=== PATIENT | male | born 1955 | race Caucasian/White ===

== ENCOUNTER → 2017-03-01 | Outpatient (CLI) | payer BC ==
[2017-03-01 11:15] LABS: BLOOD UREA NITROGEN 19 mg/dl (7-18); CREATININE 0.84 mg/dl (0.60-1.40)
== END | disposition home or self-care (01) ==
LOC: C.LABBC 08:44
PROVIDERS: ATTEND Physician Assistant
DX: R42 Dizziness and giddiness (principal); H90.5 Unspecified sensorineural hearing loss

== ENCOUNTER → 2017-03-04 | Outpatient (CLI) | payer BC ==
[~2017-03-04] MED LIST: GADAVIST IV PRN
--- NOTE | 2017-03-04 10:29 | DIAGNOSTIC IMAGING REPORT ---
MRI OF THE BRAIN AND IACS WITHOUT AND WITH IV CONTRAST CLINICAL HISTORY: H90.5 DIZZINESS. COMPARISON STUDY: No previous studies for comparison. TECHNIQUE: MRI of the brain was performed from the vertex to the skull base utilizing various T1 and T2 weighted sequences. Following the IV administration of 8.5 mL of Gadavist contrast, additional enhanced images were obtained. FINDINGS: Sagittal T1, axial diffusion, proton density and T2 weighted axial, coronal FLAIR, and pre and post axial T1-weighted images were acquired. These were supplemented with post gadolinium coronal T1 weighted images. No intra or extra-axial mass lesions are visualized. Axial diffusion-weighted images reveal no evidence of acute or subacute infarction. There is no evidence of ventricular dilatation. Proton density T2-weighted and FLAIR images reveal an old right basal ganglia infarct. Tiny scattered foci of increased T2 signal are likely on a small vessel basis. There are no abnormal flow voids. No cerebellopontine angle masses are visualized. There is no pathologic intracanalicular enhancement. No pathologically enhancing masses are identified. IMPRESSION: 1. No acute intracranial findings 2. No evidence of intracranial mass. 3. No evidence of acute or subacute infarction 4. Old right basal ganglia infarct. Electronically signed by: George Joel M.D. 03/04/2017 10:28 AM Dictated Date/Time: 03/04/2017 10:24 AM
== END | disposition home or self-care (01) ==
LOC: C.MRI 09:19
PROVIDERS: ATTEND Physician Assistant
DX: H90.5 Unspecified sensorineural hearing loss (principal); Z86.73 Personal history of transient ischemic attack (TIA), and cerebral infarction without residual deficits

== ENCOUNTER → 2017-03-29 | Outpatient (CLI) | payer BC ==
[2017-03-29 11:38] LABS: LYME DISEASE AB IGG NEG (NEG)
[2017-03-29 11:43] LABS: LYME DISEASE AB IGM NEG (NEG)
== END | disposition home or self-care (01) ==
LOC: C.LAB1850 08:44
PROVIDERS: ATTEND Family Medicine
DX: R42 Dizziness and giddiness (principal); R45.1 Restlessness and agitation; G47.9 Sleep disorder, unspecified; Z91.89 Other specified personal risk factors, not elsewhere classified

== ENCOUNTER 2020-10-19 19:38 | Observation (INO) ==
[2020-10-19] MEDS ORDERED: SODIUM CHLORIDE 0.9% 1000ML 1,000 ML IV ONE (20:11)
[2020-10-19] MEDS ORDERED: ACETAMINOPHEN 500 MG TAB PO STA (20:12)
--- NOTE | 2020-10-19 20:26 | Emergency Department Note ---
Impression & Plan COVID-19, Fever, Acute alteration in mental status ED Provider Note NAME: PRESTON WYNNE AGE: 65 SEX: M : 1955 ARRIVES VIA: Walk-In INFORMANT: Patient, the patient's significant other via telephone ED PROVIDER(S): Marco Schmitt DO CHIEF COMPLAINT: Fever HPI: The patient is a 65-year-old male who presented to the emergency department for an evaluation of fever. The patient was recently diagnosed with COVID-19 infection. The patient was seen in our facility 3 days ago for similar complaints. At that time he was tested with multiple laboratory as well as radiographic studies. He was found to have signs of respiratory illness as well as a positive COVID-19 swab. The patient was started on Tessalon Perles. He was also started on albuterol inhaler. The patient presents today with fever and worsening symptoms. He does complain of dyspnea on exertion. He does complain of a dry cough which is nonproductive. He noticed that he was having low-grade fever and was concerned that his condition was worsening so he presented to the emergency department. The patient was noted to have some degree of confusion by his significant other. I did call her on the telephone to get further history and review of systems. The patient has had no chest pain. He denies having any nausea or vomiting. He said no dysuria or frequency. The patient did not have [id number] medication for fever today. ROS: See above HPI for pertinent positives & negatives. A total of 10 systems reviewed and were otherwise negative. PAST MEDICAL HISTORY: See Below PAST SURGICAL HISTORY: See Below FAMILY HISTORY: See Below SOCIAL HISTORY: See Below HOME MEDICATIONS: See Below ALLERGIES: See Below VITALS: See Below PHYSICAL EXAMINATION: GENERAL: The patient is awake and alert. He is somewhat anxious appearing but overall comfortable. EYES: The conjunctivae are clear. The pupils are round and reactive. EARS, NOSE, MOUTH AND THROAT: The nose is without any evidence of any deformity. Mucous membranes are dry. NECK: The neck is nontender and supple. RESPIRATORY: Normal respiratory effort is noted there is no evidence of wheezing rhonchi or rales CARDIOVASCULAR: Regular rate and rhythm noted there no murmurs rubs or gallops normal S1 normal S2. GASTROINTESTINAL: The abdomen is soft. Abdomen is nontender. MUSCULOSKELETAL/EXTREMITIES: There is no evidence of gross deformity full range of motion is noted in the hips and shoulders. SKIN: There is no obvious evidence of any rash. There are no petechiae, pallor or cyanosis noted. NEUROLOGIC: Patient is awake alert and oriented to person place and situation. Patellar tendon reflexes were 2+ bilaterally. MEDICAL DECISION MAKING: The patient is a 65-year-old male who presented to the emergency department for an evaluation of confusion and fever. The patient was seen in our facility 3 days ago for similar complaints. At that time he was diagnosed with COVID-19. He was started on Tessalon Perles as well as albuterol. The patient presents back to the emergency department this evening with fever. I made multiple phone calls to the patient's significant other and apparently his alteration in mental status is new compared to previous. He does have some degree of confusion at baseline but his mental status has been off baseline over the last 48 hours. The patient was treated with IV fluids. He was given Tylenol in the emergency department. He was reevaluated multiple times. On subsequent reevaluation his condition did not significantly improve. CT the head showed no acute structural disease. Lumbar puncture was obtained and does not appear to be consistent with meningitis or subarachnoid hemorrhage. Given the patient's condition I will discuss his case with the on-call [facility] hospitalist. Triage Nursing notes reviewed. Prior medical records reviewed Vital Signs: reviewed and remarkable for fever Differential diagnosis: Viral syndrome, otitis, pharyngitis, pneumonia, influenza, meningitis, urinary tract infection, sepsis, bacteremia, as well as other pathologies. ER treatment provided: See below Diagnostics interpreted by me: ECG: EKG was obtained in the emergency department. My interpretation is normal sinus rhythm at 69 bpm. There was no ectopy. There is no acute ST segment abnormalities. This was compared to a tracing from October 162020. No significant changes were noted. Cardiac Monitoring: An order was placed for continuous cardiac monitoring. The monitor shows a rate of 75 bpm with sinus rhythm. Laboratory studies: As stated above and show below. Imaging studies: See below Consultation(s): [id number]: Dr. Rose was consulted and will evaluate the patient in the emergency department. ED COURSE: Procedures: Lumbar Puncture Indication: Altered mental status and fever. Verbal consent was obtained after the risks and benefits were explained, inc luding but not limited to headache, bleeding/clotting, scarring, infection, pain, and bone/joint/nerve damage. At this time, the risks of the procedure are less than the risks of NOT performing the procedure. A time out was taken and the correct patient and site identified. The patient was placed in the seated position and the back was prepped with betadine and draped in the standard fashion. The L3 intervertebral space was identified, anesthetized locally with 1% lidocaine without epinephrine, and the spinal needle was inserted through the skin with the bevel parallel to the dural fibers. The needle was carefully advanced into the lumbar cistern and 4 tubes of clear CSF was obtained. The st ylet was replaced and the needle was removed. A bandaid was placed and the patient was placed in the supine position. The patient tolerated the procedure well and there were no complications. PDMP:reviewed and no issues Past Med/Surg History Medical History Ischemic stroke Urinary symptom or sign Surgical History No pertinent past surgical history Family History Father Allergies Mother Allergies Other Family history non-contributory Social History Smoking Status: Never smoker Preferred Language: Tajik Feels Safe at Home: Yes Allergies Allergies Allergy/AdvReac Type Severity Reaction Status Date / Time No Known Allergies Allergy Unverified 10/16/20 14:31 Home Meds Home Medications Medication Instructions Recorded Confirmed aspirin 81 mg PO QAM 12/01/19 10/19/20 multivitamin 1 tab PO QAM 12/01/19 10/19/20 Previous Rx's Medication Instructions Recorded albuterol sulfate 2 puffs INH 6XD PRN #6.7 gm 10/16/20 benzonatate [Tessalon Perles] 100 mg PO TID PRN 5 Days #15 cap 10/16/20 Results & Data (ED) Vital Signs Vital Signs - 24 hr 10/19/20 19:44 10/19/20 20:11 10/19/20 20:29 Temperature 38.2 C H Temperature Source Temporal Artery Scan Pulse Rate 78 Pulse Rate [Apical] 67 Respiratory Rate 20 18 Respiratory Depth Normal Blood Pressure 110/73 Blood Pressure [Right Arm] 129/73 Blood Pressure Mean 85 Blood Pressure Mean [Right Arm] 91 Pulse Oximetry 97 98 98 Oxygen Delivery Method Room Air Room Air Room Air Sepsis Recent Fever Within 48 Hours Yes Sepsis New/Unexplained Change in Mental Status N/A Sepsis Action Taken by Nursing No Action Required 10/19/20 21:38 10/19/20 23:00 Temperature 37.6 C H Temperature Source Oral Oral Pulse Rate Pulse Rate [Apical] 67 70 Respiratory Rate 18 18 Respiratory Depth Normal Normal Blood Pressure Blood Pressure [Right Arm] 111/71 121/74 Blood Pressure Mean Blood Pressure Mean [Right Arm] 84 89 Pulse Oximetry 95 95 Oxygen Delivery Method Room Air Room Air Sepsis Recent Fever Within 48 Hours Sepsis New/Unexplained Change in Mental Status Sepsis Action Taken by [facility] Medications Current Medication List: was personally reviewed by me Laboratory Data Attestation: I reviewed the patient's lab results. Result diagrams: 10/19/20 20:31 10/19/20 20:31 Lab Results 10/19/20 10/19/20 10/19/20 Range/Units 20:31 20:31 20:31 WBC 3.51 L (4.8-10.8) K/uL RBC 4.58 L (4.7-6.1) M/uL Hgb 15.6 (14.0-18.0) g/dL Hct 46.4 (42-52) % MCV 101.3 H (80-100) fL MCH 34.1 H (25-34) pg MCHC 33.6 (32-36) g/dL RDW Std Deviation 46.1 (36.4-46.3) fL RDW Coeff of Jessica 12.4 (11.5-14.5) % Plt Count 178 (130-400) K/uL MPV 10.4 (7.4-10.4) fL Immature Gran % (Auto) 0.3 % Neut % (Auto) 78.0 % Lymph % (Auto) 14.0 % [place] % (Auto) 7.4 % Eos % (Auto) 0.0 % Baso % (Auto) 0.3 % Neut # (Auto) 2.74 (1.4-6.5) K/uL Lymph # (Auto) 0.49 L (1.2-3.4) K/uL [place] # (Auto) 0.26 (0.11-0.59) K/uL Eos # (Auto) 0.00 (0-0.5) K/uL Baso # (Auto) 0.01 (0-0.2) K/uL Immature Gran # (Auto) 0.01 (0.00-0.02) K/uL ESR (0-14) mm/hr PT 11.7 (9.0-12.0) Seconds INR 1.1 (0.9-1.1) APTT 28.8 (21.0-31.0) Seconds PTT Ratio 1.0 VBG pH (7.36-7.41) VBG pCO2 (38-50) mmHg VBG pO2 mmHg VBG HCO3 mmol/L VBG O2 Saturation % VBG Base Excess mEq/L Barometric Pressure mm/Hg Sodium 134 L (136-145) mmol/L Potassium 4.3 (3.5-5.1) mmol/L Chloride 101 (98-107) mmol/L Carbon Dioxide 29 (21-32) mmol/L Anion Gap 4.0 (3-11) BUN 15 (7-18) mg/dl Creatinine 1.09 (0.6-1.4) mg/dl Est Cr Clr Drug Dosing 77.5 ml/min Est GFR ( Amer) 81.5 Est GFR (Non-Af Amer) 70.4 BUN/Creatinine Ratio 14.1 (10-20) Glucose 97 (70-99) mg/dl Lactate (0.4-2.0) mmol/L Calcium 8.1 L (8.5-10.1) mg/dl Magnesium 2.0 (1.8-2.4) mg/dl Total Bilirubin 0.5 (0.2-1) mg/dl AST 11 L (15-37) U/L ALT 25 (12-78) U/L Alkaline Phosphatase 110 (45-117) U/L Ammonia (11-32) umol/L Troponin I < 0.015 (0-0.045) ng/ml C-Reactive Protein 1.79 H (0-0.29) mg/dl Total Protein 8.3 H (6.4-8.2) gm/dl Albumin 3.9 (3.4-5.0) gm/dl Globulin 4.4 H (2.5-4.0) gm/dl Albumin/Globulin Ratio 0.9 (0.9-2) Procalcitonin (0-0.5) ng/ml Urine Color Urine Appearance (Clear) Urine pH (4.5-7.5) Ur Specific Mcrae (1.000-1.030) Urine Protein (Negative) Urine Glucose (UA) (Negative) Urine Ketones (Negative) Urine Blood (Negative) Urine Nitrite (Negative) Urine Bilirubin (Negative) Urine Urobilinogen (Negative) Ur Leukocyte Esterase (Negative) CSF Appearance CSF Color Xanthrochromic CSF WBC (0-5) /uL CSF RBC (0-) /uL CSF Cell Count Tube # CSF Chemistry Tube # CSF Glucose (40-70) mg/dl CSF Total Protein (15-45) mg/dl Ethyl Alcohol mg/dL (0-3) mg/dl 10/19/20 10/19/20 10/19/20 Range/Units 20:31 20:31 20:31 WBC (4.8-10.8) K/uL RBC (4.7-6.1) M/uL Hgb (14.0-18.0) g/dL Hct (42-52) % MCV (80-100) fL MCH (25-34) pg MCHC (32-36) g/dL RDW Std Deviation (36.4-46.3) fL RDW Coeff of Jessica (11.5-14.5) % Plt Count (130-400) K/uL MPV (7.4-10.4) fL Immature Gran % (Auto) % Neut % (Auto) % Lymph % (Auto) % [place] % (Auto) % Eos % (Auto) % Baso % (Auto) % Neut # (Auto) (1.4-6.5) K/uL Lymph # (Auto) (1.2-3.4) K/uL [place] # (Auto) (0.11-0.59) K/uL Eos # (Auto) (0-0.5) K/uL Baso # (Auto) (0-0.2) K/uL Immature Gran # (Auto) (0.00-0.02) K/uL ESR 28 H (0-14) mm/hr PT (9.0-12.0) Seconds INR (0.9-1.1) APTT (21.0-31.0) Seconds PTT Ratio VBG pH (7.36-7.41) VBG pCO2 (38-50) mmHg VBG pO2 mmHg VBG HCO3 mmol/L VBG O2 Saturation % VBG Base Excess mEq/L Barometric Pressure mm/Hg Sodium (136-145) mmol/L Potassium (3.5-5.1) mmol/L Chloride (98-107) mmol/L Carbon Dioxide (21-32) mmol/L Anion Gap (3-11) BUN (7-18) mg/dl Creatinine (0.6-1.4) mg/dl Est Cr Clr Drug Dosing ml/min Est GFR ( Amer) Est GFR (Non-Af Amer) BUN/Creatinine Ratio (10-20) Glucose (70-99) mg/dl Lactate 0.8 (0.4-2.0) mmol/L Calcium (8.5-10.1) mg/dl Magnesium (1.8-2.4) mg/dl Total Bilirubin (0.2-1) mg/dl AST (15-37) U/L ALT (12-78) U/L Alkaline Phosphatase (45-117) U/L Ammonia (11-32) umol/L Troponin I (0-0.045) ng/ml C-Reactive Protein (0-0.29) mg/dl Total Protein (6.4-8.2) gm/dl Albumin (3.4-5.0) gm/dl Globulin (2.5-4.0) gm/dl Albumin/Globulin Ratio (0.9-2) Procalcitonin 0.05 (0-0.5) ng/ml Urine Color Urine Appearance (Clear) Urine pH (4.5-7.5) Ur Specific Mcrae (1.000-1.030) Urine Protein (Negative) Urine Glucose (UA) (Negative) Urine Ketones (Negative) Urine Blood (Negative) Urine Nitrite (Negative) Urine Bilirubin (Negative) Urine Urobilinogen (Negative) Ur Leukocyte Esterase (Negative) CSF Appearance CSF Color Xanthrochromic CSF WBC (0-5) /uL CSF RBC (0-) /uL CSF Cell Count Tube # CSF Chemistry Tube # CSF Glucose (40-70) mg/dl CSF Total Protein (15-45) mg/dl Ethyl Alcohol mg/dL (0-3) mg/dl 10/19/20 10/19/20 10/19/20 Range/Units 21:05 22:10 22:32 WBC (4.8-10.8) K/uL RBC (4.7-6.1) M/uL Hgb (14.0-18.0) g/dL Hct (42-52) % MCV (80-100) fL MCH (25-34) pg MCHC (32-36) g/dL RDW Std Deviation (36.4-46.3) fL RDW Coeff of Jessica (11.5-14.5) % Plt Count (130-400) K/uL MPV (7.4-10.4) fL Immature Gran % (Auto) % Neut % (Auto) % Lymph % (Auto) % [place] % (Auto) % Eos % (Auto) % Baso % (Auto) % Neut # (Auto) (1.4-6.5) K/uL Lymph # (Auto) (1.2-3.4) K/uL [place] # (Auto) (0.11-0.59) K/uL Eos # (Auto) (0-0.5) K/uL Baso # (Auto) (0-0.2) K/uL Immature Gran # (Auto) (0.00-0.02) K/uL ESR (0-14) mm/hr PT (9.0-12.0) Seconds INR (0.9-1.1) APTT (21.0-31.0) Seconds PTT Ratio VBG pH (7.36-7.41) VBG pCO2 (38-50) mmHg VBG pO2 mmHg VBG HCO3 mmol/L VBG O2 Saturation % VBG Base Excess mEq/L Barometric Pressure mm/Hg Sodium (136-145) mmol/L Potassium (3.5-5.1) mmol/L Chloride (98-107) mmol/L Carbon Dioxide (21-32) mmol/L Anion Gap (3-11) BUN (7-18) mg/dl Creatinine (0.6-1.4) mg/dl Est Cr Clr Drug Dosing ml/min Est GFR ( Amer) Est GFR (Non-Af Amer) BUN/Creatinine Ratio (10-20) Glucose (70-99) mg/dl Lactate (0.4-2.0) mmol/L Calcium (8.5-10.1) mg/dl Magnesium (1.8-2.4) mg/dl Total Bilirubin (0.2-1) mg/dl AST (15-37) U/L ALT (12-78) U/L Alkaline Phosphatase (45-117) U/L Ammonia 42.6 H (11-32) umol/L Troponin I (0-0.045) ng/ml C-Reactive Protein (0-0.29) mg/dl Total Protein (6.4-8.2) gm/dl Albumin (3.4-5.0) gm/dl Globulin (2.5-4.0) gm/dl Albumin/Globulin Ratio (0.9-2) Procalcitonin (0-0.5) ng/ml Urine Color Yellow Urine Appearance Clear (Clear) Urine pH 8.0 H (4.5-7.5) Ur Specific Mcrae 1.020 (1.000-1.030) Urine Protein Negative (Negative) Urine Glucose (UA) Negative (Negative) Urine Ketones Negative (Negative) Urine Blood Negative (Negative) Urine Nitrite Negative (Negative) Urine Bilirubin Negative (Negative) Urine Urobilinogen Negative (Negative) Ur Leukocyte Esterase Negative (Negative) CSF Appearance Clear CSF Color Colorless Xanthrochromic No xanthochromia CSF WBC 1 (0-5) /uL CSF RBC 0 (0-) /uL CSF Cell Count Tube # 3 CSF Chemistry Tube # 1 CSF Glucose 59 (40-70) mg/dl CSF Total Protein 42.7 (15-45) mg/dl Ethyl Alcohol mg/dL (0-3) mg/dl 10/19/20 10/19/20 Range/Units 22:32 22:32 WBC (4.8-10.8) K/uL RBC (4.7-6.1) M/uL Hgb (14.0-18.0) g/dL Hct (42-52) % MCV (80-100) fL MCH (25-34) pg MCHC (32-36) g/dL RDW Std Deviation (36.4-46.3) fL RDW Coeff of Jessica (11.5-14.5) % Plt Count (130-400) K/uL MPV (7.4-10.4) fL Immature Gran % (Auto) % Neut % (Auto) % Lymph % (Auto) % [place] % (Auto) % Eos % (Auto) % Baso % (Auto) % Neut # (Auto) (1.4-6.5) K/uL Lymph # (Auto) (1.2-3.4) K/uL [place] # (Auto) (0.11-0.59) K/uL Eos # (Auto) (0-0.5) K/uL Baso # (Auto) (0-0.2) K/uL Immature Gran # (Auto) (0.00-0.02) K/uL ESR (0-14) mm/hr PT (9.0-12.0) Seconds INR (0.9-1.1) APTT (21.0-31.0) Seconds PTT Ratio VBG pH 7.44 H (7.36-7.41) VBG pCO2 37 L (38-50) mmHg VBG pO2 51 mmHg VBG HCO3 24 mmol/L VBG O2 Saturation 86.6 % VBG Base Excess 0.5 mEq/L Barometric Pressure 738.6 mm/Hg Sodium (136-145) mmol/L Potassium (3.5-5.1) mmol/L Chloride (98-107) mmol/L Carbon Dioxide (21-32) mmol/L Anion Gap (3-11) BUN (7-18) mg/dl Creatinine (0.6-1.4) mg/dl Est Cr Clr Drug Dosing ml/min Est GFR ( Amer) Est GFR (Non-Af Amer) BUN/Creatinine Ratio (10-20) Glucose (70-99) mg/dl Lactate (0.4-2.0) mmol/L Calcium (8.5-10.1) mg/dl Magnesium (1.8-2.4) mg/dl Total Bilirubin (0.2-1) mg/dl AST (15-37) U/L ALT (12-78) U/L Alkaline Phosphatase (45-117) U/L Ammonia (11-32) umol/L Troponin I (0-0.045) ng/ml C-Reactive Protein (0-0.29) mg/dl Total Protein (6.4-8.2) gm/dl Albumin (3.4-5.0) gm/dl Globulin (2.5-4.0) gm/dl Albumin/Globulin Ratio (0.9-2) Procalcitonin (0-0.5) ng/ml Urine Color Urine Appearance (Clear) Urine pH (4.5-7.5) Ur Specific Mcrae (1.000-1.030) Urine Protein (Negative) Urine Glucose (UA) (Negative) Urine Ketones (Negative) Urine Blood (Negative) Urine Nitrite (Negative) Urine Bilirubin (Negative) Urine Urobilinogen (Negative) Ur Leukocyte Esterase (Negative) CSF Appearance CSF Color Xanthrochromic CSF WBC (0-5) /uL CSF RBC (0-) /uL CSF Cell Count Tube # CSF Chemistry Tube # CSF Glucose (40-70) mg/dl CSF Total Protein (15-45) mg/dl Ethyl Alcohol mg/dL < 3.0 (0-3) mg/dl Administered Medications Discontinued Medications Acetaminophen (Acetaminophen 500 Mg Tab) 1,000 mg PO NOW STA Stop: 10/19/20 20:13 Last Admin: 10/19/20 20:26 Dose: 1,000 mg Documented by: [id number] Sodium Chloride (Nss 1000ml) 1,000 mls @ 999 mls/hr IV .Q1H1M ONE Stop: 10/19/20 21:11 Last Infusion: 10/19/20 21:34 Dose: 0 mls/hr Documented by: [id number] Admin: 10/19/20 20:25 Dose: 999 mls/hr Documented by: [id number] Imaging Data Radiologist's Impression: Patient: PRESTON WYNNE Admit Date: 10/19/20 MR#: [id number] Address1: [address] [place] [address] Acct ID:[id number] Address2: Date: 1955 [facility] Zip: [place] [address] Age: 65 Location: ED Sex: M Room/Bed: Att Phy: Diagnosis: FEVER, +COVID Valentina Phy: Marco Abraham MD Service Date: 10/19/20 [facility] Phy: Interpreting Phy: Marcos Porras Admit Phy: Ordering Phy: Marco Schmitt DO cc: ~ CT head/brain wo con CLINICAL HISTORY: 65 years-old Male with altered. Acutely altered mental status. COVID Positive. TECHNIQUE: Multiple axial CT images of the head were obtained without contrast. A dose lowering technique was utilized adhering to the principles of ALARA. CT DOSE: 614.27 mGy.cm COMPARISON: Head CT 10/16/2020. FINDINGS: No acute intracranial hemorrhage, midline shift, intracranial mass, hydrocephalus, territorial ischemia or abnormal extra-axial collection. Mild age-related involutional changes with suggestion of mild chronic microvascular ischemic disease. Chronic infarct of the periventricular right frontal lobe with ex vacuo ventriculomegaly of the frontal horn. Senescent calcifications of the right lentiform nucleus redemonstrated. Cerebral vascular calcifications. The calvarium is intact. The paranasal sinuses, mastoid air cells, and middle ear cavities are clear. IMPRESSION: Chronic findings as above without acute process. ACT 112: Negative or not required by law. The above report was generated using voice recognition software. It may contain grammatical, syntax or spelling errors. Electronically signed by: William Porras M.D. 10/19/2020 9:11 PM Dictated: 10/19/202108 Transcribed: 10/19/202108 Patient: PRESTON WYNNE Admit Date: 10/19/20 MR#: [id number] Address1: [address] [place] [address] Acct ID:[id number] Address2: Date: 1955 [facility] Zip: [place] [address] Age: 65 Location: ED Sex: M Room/Bed: Att Phy: Diagnosis: FEVER, +COVID Valentina Phy: Marco Abraham MD Service Date: 10/19/20 Fam Phy: Interpreting Phy: Marcos Porras Admit Phy: Ordering Phy: Marco Schmitt DO cc: ~ XR chest 1V portable HISTORY: 65 years-old Male SEPSIS acute sepsis COMPARISON: Chest radiograph 10/16/2020 TECHNIQUE: Portable AP view of the chest FINDINGS: Cardiac silhouette is mildly enlarged. No thoracic aortic tortuosity with calcified plaque. Mild interstitial coarsening without pneumothorax, pleural effusion, airspace consolidation or overt pulmonary edema. Degenerative changes of the shoulders and spine. IMPRESSION: No acute process. ACT 112: Negative or not required by law. The above report was generated using voice recognition software. It may contain grammatical, syntax or spelling errors. Electronically signed by: William Porras M.D. 10/19/2020 8:42 PM Dictated: 10/19/202040 Transcribed: 10/19/202040 Blood Pressure Blood Pressure Findings: Normal blood pressure Discharge Plan Visit Data Chief Complaint: Fever Stated Complaint: FEVER, +COVID ED Provider: Marco Schmitt Discharge Problem: COVID-19, Fever, Acute alteration in mental status Patient Disposition: Being Evaluated by Hospitalist Condition: Good Forms Stand Alone Forms: [facility] Pres[facility] Prescriptions: No Action multivitamin Tablet 1 tab PO QAM RF: 0 aspirin 81 mg tablet,delayed release (DR/EC) 81 mg PO QAM RF: 0 benzonatate [Tessalon Perles] 100 mg capsule 100 mg PO TID PRN (Reason: cough) 5 Days Qty: 15 RF: 0 albuterol sulfate 90 mcg/actuation HFA aerosol inhaler 2 puffs INH 6XD PRN (Reason: shortness of breath or wheezing) Qty: 6.7 RF: 0 Referrals Referrals: Marco Abraham MD [Primary Care Provider] - Discharge Problem: Fever Qualifiers: Fever type: unspecified Qualified Code(s): R50.9 - Fever, unspecified
[2020-10-19 20:41] LABS: Basophils # (auto) 0.01 K/uL (0-0.2); Basophils % (auto) 0.3 %; Hematocrit (blood only) 46.4 % (42-52); Hemoglobin 15.6 g/dL (14.0-18.0); Immature Granulocytes # (auto) 0.01 K/uL (0.00-0.02); Immature Granulocytes % (auto) 0.3 %; Lymphocytes # (auto) 0.49 K/uL (1.2-3.4); Mean Corpuscular Hemoglobin 34.1 pg (25-34); Mean Corpuscular Hgb Conc 33.6 g/dL (32-36); Mean Corpuscular Volume 101.3 fL (80-100); Mean Platelet Volume 10.4 fL (7.4-10.4); Monocytes # (auto) 0.26 K/uL (0.11-0.59); Monocytes % (auto) 7.4 %; Neutrophils # (auto) 2.74 K/uL (1.4-6.5); Platelet Count 178 K/uL (130-400); RDW Coefficient of Variation 12.4 % (11.5-14.5); RDW Standard Deviation 46.1 fL (36.4-46.3); Red Blood Count 4.58 M/uL (4.7-6.1); White Blood Count 3.51 K/uL (4.8-10.8)
--- NOTE | 2020-10-19 20:43 | XRay Report ---
XR chest 1V portable HISTORY: 65 years-old Male SEPSIS acute sepsis COMPARISON: Chest radiograph 10/16/2020 TECHNIQUE: Portable AP view of the chest FINDINGS: Cardiac silhouette is mildly enlarged. No thoracic aortic tortuosity with calcified plaque. Mild inte rstitial coarsening without pneumothorax, pleural effusion, airspace consolidation or overt pulmonary edema. Degenerative changes of the shoulders and spine. IMPRESSION: No acute process. ACT 112: Negative or not required by law. The above report was generated using voice recognition software. It may contain grammatical, syntax o r spelling errors. Electronically signed by: William Porras M.D. 10/19/2020 8:42 PM
[2020-10-19 20:58] LABS: Alanine Aminotransferase 25 U/L (12-78); Albumin Level 3.9 gm/dl (3.4-5.0); Aspartate Aminotransferase 11 U/L (15-37); BUN Creatinine Ratio 14.1 (10-20); Blood Urea Nitrogen 15 mg/dl (7-18); C Reactive Protein 1.79 mg/dl (0-0.29); Calcium 8.1 mg/dl (8.5-10.1); Carbon Dioxide 29 mmol/L (21-32); Chloride 101 mmol/L (98-107); Creatinine Clr Calc Pharmacy 77.5 ml/min; Est GFR (African American) 81.5; Est GFR (Non-African American) 70.4; Glucose 97 mg/dl (70-99); Potassium 4.3 mmol/L (3.5-5.1); Sodium 134 mmol/L (136-145)
[2020-10-19 21:03] LABS: Albumin Globulin Ratio 0.9 (0.9-2); Alkaline Phosphatase 110 U/L (45-117); Bilirubin,Total 0.5 mg/dl (0.2-1); Globulin 4.4 gm/dl (2.5-4.0); Total Protein 8.3 gm/dl (6.4-8.2); Troponin I < 0.015 ng/ml (0-0.045)
[2020-10-19 21:13] LABS: INR 1.1 (0.9-1.1); Partial Thromboplastin Time 28.8 Seconds (21.0-31.0); Prothrombin Time 11.7 Seconds (9.0-12.0)
--- NOTE | 2020-10-19 21:13 | CT Scan Report ---
CT head/brain wo con CLINICAL HISTORY: 65 years-old Male with altered. Acutely altered mental status. COVID Positive. TECHNIQUE: Multiple axial CT images of the head were obtained without contrast. A dose lowering tech nique was utilized adhering to the principles of ALARA. CT DOSE: 614.27 mGy.cm COMPARISON: Head CT 10/16/2020. FINDINGS: No acute intracranial hemorrhage, midline shift, intracranial mass, hydrocephalus, territorial ischem ia or abnormal extra-axial collection. Mild age-related involutional changes with suggestion of mild chronic microvascular ischemic disease. Chronic infarct of the periventricular right frontal lobe wit h ex vacuo ventriculomegaly of the frontal horn. Senescent calcifications of the right lentiform nucl eus redemonstrated. Cerebral vascular calcifications. The calvarium is intact. The paranasal sinuses, mastoid air cells, and middle ear cavities are clear . IMPRESSION: Chronic findings as above without acute process. ACT 112: Negative or not required by law. The above report was generated using voice recognition software. It may contain grammatical, syntax o r spelling errors. Electronically signed by: William Porras M.D. 10/19/2020 9:11 PM
[2020-10-19 21:17] LABS: Appearance Urine Clear (Clear); Bilirubin Urine Negative (Negative); Blood Urine Negative (Negative); Color Urine Yellow; Glucose Urine UA Negative (Negative); Ketones Urine Negative (Negative); Leukocyte Esterase Urine Negative (Negative); Nitrite Urine Negative (Negative); Protein Urine Negative (Negative); Urobilinogen Urine Negative (Negative)
[2020-10-19 22:36] LABS: CSF Glucose 59 mg/dl (40-70); Total Protein CSF 42.7 mg/dl (15-45)
[2020-10-19 22:38] LABS: Appearance CSF Clear; CSF Count Tube # 3; CSF Xanthrochromic No xanthochromia; Color CSF Colorless; Red Blood Cell CSF (A) 0 /uL (0-); Red Blood Cell CSF (B) 0 /uL (0-); White Blood Cell CSF (A) 1 /uL (0-5); White Blood Cell CSF (B) 0 /uL (0-5)
[2020-10-19 22:39] LABS: CSF Chemistry Tube # 1
[2020-10-19 22:53] LABS: Base Excess VBG 0.5 mEq/L; Oxygen Saturation VBG 86.6 %; pH VBG 7.44 (7.36-7.41)
[2020-10-19] MEDS ORDERED: DEXAMETHASONE SOD INJ 10 MG/ML VIAL IV ONE (23:59)
[2020-10-20] MEDS ORDERED: ACETAMINOPHEN 325 MG TAB PO PRN (04:47)
[2020-10-20] MEDS ORDERED: ONDANSETRON INJ 2 MG/ML 2 ML VIAL IV PRN (04:47)
--- NOTE | 2020-10-20 05:32 | History & Physical Report ---
Date of Service October 20, 2020 Assessment & Plan (1) Acute alteration in mental status: Acute alteration in mental status/delirium/infection due to COVID-19 virus/history of previous CVA and subsequent dementia- CT head negative for acute event MRI brain without contrast negative for acute stroke. Family reports the patient has had noticeable difference in mentation since being diagnosed with a COVID-19 virus on 10/16/2020 Concerning for delirium due to COVID-19 virus, plus/minus aggravation of underlying vascular dementia Place on dexamethasone 6 mg IV daily. Not a candidate for convalescent plasma or remdesivir. Follow for the development of secondary bacterial infection, as patient did develop a low-grade temperature of 99.7 while in the ED. Follow on telemetry Present on Admission?: Yes (2) Delirium: See above Present on Admission?: Yes (3) Cerebrovascular disease: See above Present on Admission?: Yes (4) Infection due to 2019 novel coronavirus: See above Present on Admission?: Yes (5) Dementia: See above Present on Admission?: Yes Admission and Anticipated Discharge Date Admission Date: October 20, 2020 History of Present Illness Chief Complaint: The patient was referred to the emergency department by family, due to fever, history of recent COVID-19 infection and altered mental status Primary Care Provider: Marco Abraham MD The patient is a 65-year-old male with a past medical history including CVA and dementia, who was initially assessed in the ED on 10/16/2020, where he was diagnosed with COVID-19 infection, and sent home on albuterol and HFA inhaler and Tessalon Perles. Family reports that he has been developing more confusion at home, developed a temperature and was having a dry cough and worsening symptoms shortness of breath and dyspnea on exertion Allergies Allergy/AdvReac Type Severity Reaction Status Date / Time No Known Allergies Allergy Unverified 10/16/20 14:31 Home Medications Medication Instructions Recorded Confirmed Type aspirin 81 mg PO QAM 12/01/19 10/19/20 History multivitamin 1 tab PO QAM 12/01/19 10/19/20 History albuterol sulfate 2 puffs INH 6XD PRN #6.7 gm 10/16/20 10/19/20 Rx benzonatate [Tessalon Perles] 100 mg PO TID PRN 5 Days #15 cap 10/16/20 10/19/20 Rx Past Med/Surg History Medical History Ischemic stroke Urinary symptom or sign Surgical History No pertinent past surgical history Family History Father Allergies Mother Allergies Other Family history non-contributory Social History Smoking Status: Never smoker Preferred Language: Amharic Feels Safe at Home: Yes Review of Systems Review of Systems: The patient denies chest pain, palpitations, lower extremity swelling, sore throat, fevers, chills, sweats, nausea, vomiting, diarrhea , constipation, abdominal pain, pelvic pain, blood in urine or stool, dysuria, urinary frequency or urgency, lightheadedness, dizziness, headache, loss of consciousness, rash, abnormal bruising or bleeding, imbalance, focal weakness, numbness or tingling in arms or legs, generalized arthralgias or myalgias, back or neck pain, or night sweats. The review of systems is otherwise negative other than for that already noted above, and at least 10 systems have been reviewed. Physical Exam Physical Exam: The patient is awake, alert , well developed and well nourished, normocephalic and atraumatic, lying in bed and in no acute distress. HEENT--PERRL, EOMI, mucous membranes and oropharynx normal. Neck--supple. No JVD. No bruits. Thyroid normal, trachea midline, no adenopathy. Heart--normal S1 and S2. No murmurs, rubs or gallops. Lungs--clear bilaterally, no respiratory distress, no accessory muscle use. Abdomen--normal bowel sounds and soft. Nontender. Nondistended. Extremities--no cyanosis or clubbing. No edema. Dermatologic--normal skin turgor, normal color, no abnormal lymph nodes, no rash. Neurologic--cranial nerves II through XII grossly intact. Rheumatologic--normal range of motion. Psychiatric--normal affect. Results & Data Results & Data ([facility]) Vital Signs (Past 12 Hours) Vital Signs Temp Pulse Pulse Resp BP BP Pulse Ox 10/20/20 04:00 54 L 18 109/51 L 98 10/20/20 01:00 70 18 120/71 96 10/20/20 00:00 77 18 123/74 95 10/19/20 23:00 70 18 121/74 95 10/19/20 21:38 99.7 F H 67 18 111/71 95 10/19/20 20:29 67 18 129/73 98 10/19/20 20:11 98 10/19/20 19:44 100.8 F H 78 20 110/73 97 Laboratory Results Laboratory Results WBC 3.51 K/uL (4.8-10.8) L 10/19/20 20:31 RBC 4.58 M/uL (4.7-6.1) L 10/19/20 20:31 Hgb 15.6 g/dL (14.0-18.0) 10/19/20 20:31 Hct 46.4 % (42-52) 10/19/20 20:31 MCV 101.3 fL (80-100) H 10/19/20 20:31 MCH 34.1 pg (25-34) H 10/19/20 20:31 MCHC 33.6 g/dL (32-36) 10/19/20 20:31 RDW Std Deviation 46.1 fL (36.4-46.3) 10/19/20 20:31 RDW Coeff of Jessica 12.4 % (11.5-14.5) 10/19/20 20:31 Plt Count 178 K/uL (130-400) 10/19/20 20:31 MPV 10.4 fL (7.4-10.4) 10/19/20 20:31 Immature Gran % (Auto) 0.3 % 10/19/20 20:31 Neut % (Auto) 78.0 % 10/19/20 20: Lymph % (Auto) 14.0 % 10/19/20 20: [place] % (Auto) 7.4 % 10/19/20 20:31 Eos % (Auto) 0.0 % 10/19/20 20:31 Baso % (Auto) 0.3 % 10/19/20 20: Neut # (Auto) 2.74 K/uL (1.4-6.5) 10/19/20 20:31 Lymph # (Auto) 0.49 K/uL (1.2-3.4) L 10/19/20 20:31 [place] # (Auto) 0.26 K/uL (0.11-0.59) 10/19/20 20:31 Eos # (Auto) 0.00 K/uL (0-0.5) 10/19/20 20:31 Baso # (Auto) 0.01 K/uL (0-0.2) 10/19/20 20: Immature Gran # (Auto) 0.01 K/uL (0.00-0.02) 10/19/20 20: ESR 28 mm/hr (0-14) H 10/19/20 20: PT 11.7 Seconds (9.0-12.0) 10/19/20 20: INR 1.1 (0.9-1.1) 10/19/20 20: APTT 28.8 Seconds (21.0-31.0) 10/19/20 20: PTT Ratio 1.0 10/19/20 20: VBG pH 7.44 (7.36-7.41) H 10/19/20 22:32 VBG pCO2 37 mmHg (38-50) L 10/19/20 22:32 VBG pO2 51 mmHg 10/19/20 22:32 VBG HCO3 24 mmol/L 10/19/20 22:32 VBG O2 Saturation 86.6 % 10/19/20 22:32 VBG Base Excess 0.5 mEq/L 10/19/20 22:32 Barometric Pressure 738.6 mm/Hg 10/19/20 22:32 Sodium 134 mmol/L (136-145) L 10/19/20 20: Potassium 4.3 mmol/L (3.5-5.1) 10/19/20 20: Chloride 101 mmol/L (98-107) 10/19/20 20: Carbon Dioxide 29 mmol/L (21-32) 10/19/20 20: Anion Gap 4.0 (3-11) 10/19/20 20: BUN 15 mg/dl (7-18) 10/19/20 20: Creatinine 1.09 mg/dl (0.6-1.4) 10/19/20 20: Est Cr Clr Drug Dosing 77.5 ml/min 10/19/20 20: Est GFR ( Amer) 81.5 10/19/20 20: Est GFR (Non-Af Amer) 70.4 10/19/20 20: BUN/Creatinine Ratio 14.1 (10-20) 10/19/20 20: Glucose 97 mg/dl (70-99) 10/19/20: Lactate 0.8 mmol/L (0.4-2.0) 10/19/20: Calcium 8.1 mg/dl (8.5-10.1) L 10/19/20: Magnesium 2.0 mg/dl (1.8-2.4) 10/19/20 Total Bilirubin 0.5 mg/dl (0.2-1) 10/19/20: AST 11 U/L (15-37) L 10/19/20: ALT 25 U/L (12-78) 10/19/20: Alkaline Phosphatase 110 U/L (45-117) 10/19/20: Ammonia 42.6 umol/L (11-32) H 10/19/20 22:32 Troponin I < 0.015 ng/ml (0-0.045) 10/19/20 C-Reactive Protein 1.79 mg/dl (0-0.29) H 10/19/20: Total Protein 8.3 gm/dl (6.4-8.2) H 10/19/20: Albumin 3.9 gm/dl (3.4-5.0) 10/19/20: Globulin 4.4 gm/dl (2.5-4.0) H 10/19/20 Albumin/Globulin Ratio 0.9 (0.9-2) 10/19/20 Procalcitonin 0.05 ng/ml (0-0.5) 10/19/20 20: Urine Color Yellow 10/19/20 21: Urine Appearance Clear (Clear) 10/19/20 21: Urine pH 8.0 (4.5-7.5) H 10/19/20 21: Ur Specific [place] [employer] 1.020 (1.000-1.030) 10/19/20 21:05 Urine Protein Negative (Negative) 10/19/20 21:05 Urine Glucose (UA) Negative (Negative) 10/19/20 21:05 Urine Ketones Negative (Negative) 10/19/20 21:05 Urine Blood Negative (Negative) 10/19/20 21:05 Urine Nitrite Negative (Negative) 10/19/20 21:05 Urine Bilirubin Negative (Negative) 10/19/20 21:05 Urine Urobilinogen Negative (Negative) 10/19/20 21:05 Ur Leukocyte Esterase Negative (Negative) 10/19/20 21:05 CSF Appearance Clear 10/19/20 22:10 CSF Color Colorless 10/19/20 22:10 Xanthrochromic No xanthochromia 10/19/20 22:10 CSF WBC 1 /uL (0-5) 10/19/20 22:10 CSF RBC 0 /uL (0-) 10/19/20 22:10 CSF Cell Count Tube # 3 10/19/20 22:10 CSF Chemistry Tube # 1 10/19/20 22:10 CSF Glucose 59 mg/dl (40-70) 10/19/20 22:10 CSF Total Protein 42.7 mg/dl (15-45) 10/19/20 22:10 Ethyl Alcohol mg/dL < 3.0 mg/dl (0-3) 10/19/20 22:32 Diagnostic Findings [facility], [id number] XRay Report Patient: PRESTON WYNNE CAdandrea Date: 10/19/20MR#: [id number]: [address] [place] [address] DRAcct ID:[id number]: Date: [address] [place] [address] Zip: [place] [id number]: 65Location: EDSex: MRoom/Bed:Att Phy:Diagnosis: FEVER, +COVIDPri Phy: Marco Abraham MDService Date: 10/19/20Fam Phy:Interpreting Phy: Marcos PorrasAdmit Phy: Ordering Phy: Marco Schmitt DO cc: ~ XR chest 1V portable HISTORY: 65 years-old Male SEPSIS acute sepsis COMPARISON: Chest radiograph 10/16/2020 TECHNIQUE: Portable AP view of the chest FINDINGS: Cardiac silhouette is mildly enlarged. No thoracic aortic tortuosity with calcified plaque. Mild interstitial coarsening without pneumothorax, pleural effusion, airspace consolidation or overt pulmonary edema. Degenerative changes of the shoulders and spine. IMPRESSION: No acute process. ACT 112: Negative or not required by law. The above report was generated using voice recognition software. It may contain grammatical, syntax or spelling errors. Electronically signed by: William Porras M.D. 10/19/2020 8:42 PM Dictated: 10/19/202040Transcribed: 10/19/202040 [facility], [id number] CT Scan Report Patient: PRESTON WYNNE Date: 10/19/20#: [id number]: [address] DRAcct ID:[id number]: Date: [address] [place] [address] Zip: [place] [id number]: 65Location: EDSex: MRoom/Bed:Att Phy:Diagnosis: FEVER, +COVIDPri Phy: Marco Abraham, MDService Date: 10/19/20Fa Phy:Interpreting Phy: Marcos PorrasAdmit Phy: Ordering Phy: Marco Schmitt, cc: ~ CT head/brain wo con CLINICAL HISTORY: 65 years-old Male with altered. Acutely altered mental status. COVID Positive. TECHNIQUE: Multiple axial CT images of the head were obtained without contrast. A dose lowering technique was utilized adhering to the principles of ALARA. CT DOSE: 614.27 mGy.cm COMPARISON: Head CT 10/16/2020. FINDINGS: No acute intracranial hemorrhage, midline shift, intracranial mass, hydrocephalus, territorial ischemia or abnormal extra-axial collection. Mild age-related involutional changes with suggestion of mild chronic microvascular ischemic disease. Chronic infarct of the periventricular right frontal lobe with ex vacuo ventriculomegaly of the frontal horn. Senescent calcifications of the right lentiform nucleus redemonstrated. Cerebral vascular calcifications. The calvarium is intact. The paranasal sinuses, mastoid air cells, and middle ear cavities are clear. IMPRESSION: Chronic findings as above without acute process. ACT 112: Negative or not required by law. The above report was generated using voice recognition software. It may contain grammatical, syntax or spelling errors. Electronically signed by: William Porras M.D. 10/19/2020 9:11 PM Dictated: 10/19/202108Transcribed: 10/19/202108 [facility] Patient: PRESTON WYNNE (Male) : 53 Status: ER Date: 10/20/20 03:33 Room #: A4B History: COVID- 19 + , FEVER, ACUTE ALTERATION IN MENTAL STATUS. Slices: 222 Priors: Tech: MurilloDany @ [phone] Exams: MRI HEAD Contrast: Accession Numbers: [id number] Preliminary Findings Only See Final Report For Complete Findings MRI HEAD : Comparison: 10/19/2020 CT examination. Mild generalized brain atrophy. Minimal punctate foci within the periventricular deep white matter which may indicate sequela of old migraine headaches versus minor microangiopathic changes. No acute stroke. No intracranial hemorrhage. No space-occupying lesion. Radiologist: Mayra Monterroso MD Study ready at 03:39 and initial results transmitted at 03:45 *This report constitutes a preliminary interpretation only. Non-acute findings felt to be unrelated to the clinical presentation may not be discussed in this report. The study will be interpreted and a final report will be generated by the local Radiologist the following shift. To reach the hospital radiology department call [phone]. If a discrepancy is found between the preliminary and final interpretations of this study, please notify us via our Client Portal at [email or web address].You can also fax this report with a description of the discrepancy, or include the final report, to our daytime fax number [phone].If faxing, please indicate the severity of discrepancy using one of the following categories: [ ] 1 - Agree/Informational [ ] 2 - Unlikely to Affect Management [ ] 3 - Possible Eventual Change of Management [ ] 4 - Probable Immediate Change of Management For all other patient related information, please fax us at [phone]. [id number] Code Status & VTE Plan Code Status Full code VTE Prophylaxis Plan VTE Prophylaxis will be ordered: Yes PG Care Time/CCT Total # of Minutes Spent Total Time Spent with Patient: Total time spent is greater than 50% in coordination of care (as documented) at patient's floor/unit and/or counseling patient: Coding Level of Care Code 47471 OBS Care - Level 3 Diagnoses Acute alteration in mental status R41.82 Delirium R41.0 Cerebrovascular disease I67.9 Infection due to 2019 novel coronavirus U07.1 Dementia F03.90
--- NOTE | 2020-10-20 08:05 | Magnetic Resonance Report ---
MRI OF THE BRAIN WITHOUT IV CONTRAST CLINICAL HISTORY: Change in mental status. Covid. COMPARISON STUDY: CT of the brain dated 10/19/2020. TECHNIQUE: MRI of the brain was performed utilizing various T1 and T2-weighted sequences in the axial , sagittal, and coronal planes. IV contrast was not administered for this examination. FINDINGS: Brain parenchyma: There is age-related involutional change noting mild subcortical and periventricula r microangiopathic disease. A chronic lacunar infarct is noted in the right internal capsule/basal ga nglia. There is no hemorrhage or mass effect. There is no restricted diffusion to suggest acute ische eliana. [place]-white matter differentiation is preserved. No extra-axial fluid collection is seen. The cer ebellar tonsils are normal in configuration. Ventricles, sulci, and cisterns: Prominent secondary to inclusion will change. Pituitary and sella: Unremarkable. Intracranial vasculature: Normal flow voids are maintained at the skull base. Orbits: The bony orbits are grossly intact. Orbital contents are normal in appearance. Sinuses and mastoids: Trace mucosal thickening is noted within the ethmoid and sphenoid sinuses. The remaining paranasal sinuses and the mastoid air cells are clear. Calvarium: Unremarkable. Cervical cord: Partially visualized cervical spinal cord is normal in morphology and signal intensity . IMPRESSION: No acute intracranial abnormality. ACT 112: Negative or not required by law. Electronically signed by: Osmar Carlisle M.D. 10/20/2020 8:03 AM
[2020-10-20] MEDS ORDERED: MULTIVITAMIN TAB PO SCH (09:00)
[2020-10-20] MEDS ORDERED: dexAMETHasone 6 MG in SYRINGE 0 ML IV SCH (09:00)
[2020-10-20] MEDS ORDERED: ASPIRIN 81 MG ECTAB PO SCH (09:00)
--- NOTE | 2020-10-20 14:24 | Discharge Summary ---
Date of Service October 20, 2020 Admission HPI Per Admitting Provider The patient is a 65-year-old male with a past medical history including CVA and dementia, who was initially assessed in the ED on 10/16/2020, where he was diagnosed with COVID-19 infection, and sent home on albuterol and HFA inhaler and Tessalon Perles. Family reports that he has been developing more confusion at home, developed a temperature and was having a dry cough and worsening symptoms shortness of breath and dyspnea on exertion Principal Diagnosis COVID 19 infection causing fever and delirium Discharge Exam Constitutional WD/WN, vitals as above Neck trachea midline, no thyromegaly Respiratory normal respiratory effort, lungs clear to auscultation Cardiovascular RRR, no murmur, no edema Gastrointestinal (Abdomen) normal bowel sounds, soft, nontender, no hepatosplenomegaly Musculoskeletal no cyanosis or clubbing, extremities motor strength 5/5 Skin no rashes, warm and dry Neurologic patellar DTR's 2+ bilat, sensation intact and PERRL, EOMI, accommodation nl, no face palsy, no dysarthria Psychiatric A+Ox3, euthymic affect Lymphatic no cervical or axillary lymphadenopathy Discharge Data Allergies Allergy/AdvReac Type Severity Reaction Status Date / Time No Known Allergies Allergy Unverified 10/16/20 14:31 Consultations 10/19/20 23:40 ED Decision to Admit Stat 10/20/20 04:47 Consult Case Management - Discharge Planning Routine Ordered Studies 10/19/20 20:21 CT head/brain wo con Stat 10/20/20 00:12 MR brain wo con Stat Hospital Course (1) Acute alteration in mental status: Acute alteration in mental status/delirium/infection due to COVID-19 virus/history of previous CVA CT head negative for acute event MRI brain without contrast negative for acute stroke. per his , the delirium was associated with his fevers while in the hospital, he has been alert and oriented x 3, no fevers here he is eating and drinking well no hypoxemia, no dyspnea, lungs clear on exam and normal chest x-ray change to observation status discharge to home instructed to use Tylenol and ibuprofen for fevers stay well rested, well nourished, well hydrated should remain isolated until 10 days from last fever (2) Delirium: See above resolved with resolution of fevers due to COVID 19 (3) Cerebrovascular disease: See above continue aspirin 81mg daily (4) Infection due to 2019 novel coronavirus: See above no evidence of pneumonia no need for treatment with dexamethasone can d/c home Total Time Total Time Spent Total Time Spent (In Minutes): 25 Total Time Includes: Examination of the Patient, Discharge Planning and Medication Reconciliation Discharge Plan Discharge Items Patient Disposition: Home - Self-Care Reason For Visit: AMS, COVID-19 INFECTION Discharge Diagnosis: COVID 19 infection Confusion, resolved Condition on Discharge: Good Goals: use Tylenol and Motrin for fevers stay well nourished, well hydrated Activity: Resume your previous activity Weightbearing: Full weightbearing Non-emergency contact: Primary Care Provider Call non-emergency contact if: you have any medication questions Follow-up/Referrals: Marco Abraham MD [Primary Care Provider] - 10/24/20 10:00 am (one week Your appointment will be a virtual appointment. Please call the office to give them more information for this appoinment.) Diet: Heart Healthy Addtl Attending Provider Instructions: COVID 19 infection, fever, confusion no signs of pneumonia on chest x-ray, lungs clear, no difficulty breathing confusion resolved with resolution of fever recommend that you stay well rested, well hydrated, well nourished at home stay in isolation 10 days from last fever, you had a fever last night so would stay isolated until 10/30/20 for fever, use Tylenol and ibuprofen Tylenol: use 650mg every 6 hours or 500mg every 4 hours for temp > 100.3 ibuprofen: use 600mg every 6 hours for temp > 100.3 monitor for any signs of worsening shortness of breath, obtain a finger pulse oximeter from drug store, return to the emergency room is saturations are less than 90% Pending Studies at Discharge: No Stand-Alone Forms: My [employer], Smoking Cessation Medications and DC Order Prescriptions: Continued multivitamin Tablet 1 tab PO QAM RF: 0 aspirin 81 mg tablet,delayed release (DR/EC) 81 mg PO QAM RF: 0 albuterol sulfate 90 mcg/actuation HFA aerosol inhaler 2 puffs INH 6XD PRN (Reason: shortness of breath or wheezing) Qty: 6.7 RF: 0 Discharge Orders: Discharge Order (Routine); Ordered 10/20/20 Ordered By: Pito Forman Admission Data Admit Date/Time: 10/20/20 03:40 Attending Provider: Pito Forman Admit Provider: Eddi Diez Primary Care Provider: Marco Abraham Other Providers: Eddi Diez Other Interventions: Discharge Summary Assessment (RN) Last Done: 10/20/20 14:54 Coding Level of Care Code 67576 OBS Care - Discharge Diagnoses Acute alteration in mental status R41.82 Delirium R41.0 Cerebrovascular disease I67.9 Infection due to 2019 novel coronavirus U07.1
== END 2020-10-20 15:45 | disposition home or self-care (01) | DRG 179 ==
LOC: ED 19:38 → SUATTDRO 10-20 03:40 → 2E 10-20 03:40 → INTOOBSV 10-20 03:40 → 2E 10-20 04:22
DX: Z79.82 Long term (current) use of aspirin; Z86.73 Personal history of transient ischemic attack (TIA), and cerebral infarction without residual deficits; U07.1 COVID-19; F03.90 Unspecified dementia, unspecified severity, without behavioral disturbance, psychotic disturbance, mood disturbance, and anxiety; R41.0 Disorientation, unspecified; I67.9 Cerebrovascular disease, unspecified